=== PATIENT | male | born 1985 | race Caucasian/White ===

== ENCOUNTER 2018-03-13 11:47 | Emergency (ER) | payer OTHER ==
[2018-03-13] MEDS ORDERED: HYDROCODONE/APAP 10/325 TAB ONE (13:13)
[2018-03-13] MEDS ORDERED: DIAZEPAM 5 MG TABLET ONE (13:14)
--- NOTE | 2018-03-13 14:56 | RAD REPORT ---
EXAM DESCRIPTION: CT - C Spine Wo Con - 03/13/2018 2:37 pm CLINICAL HISTORY: Neck pain, decreased range of motion COMPARISON: None. TECHNIQUE: Axial 2 mm thick images of the cervical spine were obtained with sagittal and coronal rec onstruction images generated and reviewed. All CT scans are performed using dose optimization technique as appropriate and may include automated exposure control or mA/KV adjustment according to patient size. FINDINGS: Cervical bodies are normal in height. No subluxation abnormality. There is straightening o f the usual cervical lordosis and a minimal right convex curvature that probably reflect muscle spasm . No facet joint alignment abnormality. No disk space narrowing. No fracture or acute bony abnormalit y. No paraspinal mass or hematoma. Central canal detail is inherently limited on CT imaging. IMPRESSION: No fracture, subluxation abnormality or other acute finding seen. The straightening of the usual cervical lordosis and slight right convex curvature likely reflect mus brina spasm.
--- NOTE | 2018-03-13 15:08 | EDPHYS ---
Physician Documentation [facility] Name: Pola Archuleta Age: 32 yrs Sex: Male : 1985 Arrival Date: 03/13/2018 Time: 11:51 Bed 18 Private MD: Nam Miller ED Physician Riley Contreras HPI: 03/13 13:05 This 32 yrs old Male presents to ER via Ambulatory with complaints of Neck jmm and Upper Back Pain. 13:05 The patient or guardian complains of pain. The symptoms are located on the scalp. jmm Onset: The symptoms/episode began/occurred gradually, 3 day(s) ago. This is a 32 year old male with a history of htn, hlp that presents to the ED with neck pain which developed after he awoke from a nap. Patient denies cough, congestion, fever. Patient states he became concerned due ot the length of symptoms and developed a cold sweat. Patient denies other symptom. . Historical: - Allergies: 12:00 No Known Allergies; hj - Home Meds: 12:00 valsartan 320 mg oral tab 1 tab once daily [Active]; pravastatin 40 mg oral tab 1 tab hj once daily [Active]; - PMHx: 12:00 Hyperlipidemia; Hypertension; hj - PSHx: 12:00 Appendectomy; bone surgery; hj - Immunization history:: Adult Immunizations up to date. - Social history:: Smoking status: Patient uses tobacco products, smokes one pack cigarettes per day. Patient uses alcohol, occasionally. - Ebola Screening: : Patient negative for fever greater than or equal to 101.5 degrees Fahrenheit, and additional compatible Ebola Virus Disease symptoms Patient denies exposure to infectious person Patient denies travel to an Ebola-affected area in the 21 days before illness onset. ROS: 12:10 Constitutional: Negative for fever, chills, and weight loss, Cardiovascular: Negative jmm for chest pain, palpitations, and edema, Respiratory: Negative for shortness of breath, cough, wheezing, and pleuritic chest pain. 12:10 MS/Extremity: Negative for injury and deformity, Skin: Negative for injury, rash, and discoloration. 12:10 Neck: Positive for pain with movement. 12:10 Back: Positive for pain with movement. 12:10 Neuro: Positive for headache. 12:10 All other systems are negative. Exam: 12:10 Head/Face: atraumatic. Chest/axilla: Normal chest wall appearance and motion. terri Cardiovascular: Regular rate and rhythm. No edema appreciated Respiratory: Normal respirations, no respiratory distress appreciated 12:10 Constitutional: The patient appears in no acute distress, alert, awake. 12:10 Neck: C-spine: vertebral tenderness, that is mild, appreciated at C5 and C6, ROM/movement: pain, that is mild, with extension, no pain elicited on flexion. 12:10 Skin: Appearance: Color: normal in color. 12:10 Neuro: Orientation: is normal, Mentation: is normal, Memory: is normal, Cerebellar function: normal finger to nose testing, Gait: is steady. 12:10 Psych: Behavior/mood is pleasant, cooperative. Vital Signs: 12:01 BP 177 / 109; Pulse 78; Resp 18; Temp 98.1(O); Pulse Ox 98% on R/A; Weight 86.18 kg; hj Height 5 ft. 11 in. (180.34 cm); Pain 3/10; 12:55 BP 142 / 82; Pulse 74; Resp 16; Pulse Ox 98% on R/A; Pain 2/10; jb4 13:39 BP 133 / 86; Pulse 76; Resp 16; Pulse Ox 98% on R/A; Pain 2/10; jb4 12:01 Body Mass Index 26.50 (86.18 kg, 180.34 cm) MDM: 13:03 Patient medically screened. [facility] 15:03 Data reviewed: vital signs, nurses notes, radiologic studies, CT scan. Counseling: I terri had a detailed discussion with the patient and/or guardian regarding: the historical points, exam findings, and any diagnostic results supporting the discharge/admit diagnosis, radiology results, the need for outpatient follow up, to return to the emergency department if symptoms worsen or persist or if there are any questions or concerns that arise at home. Response to treatment: the patient's symptoms have mildly improved after treatment. ED course: Patient is alert and non toxic in the ED. Patient is afebrile. Patient does not have meningeal signs in the ED. CT imaging negative. Patient denies hx of previous spinal surgery or IV drug use, I do not currently suspect abscess. Patient's symptoms appear more likely related to musculoskeletal pain. Patient advised to follow up with his PCP. Patient is otherwise given strict return precautions Patient understood and agrees with the plan of care. . 03/13 14:20 Order name: CT C Spine; Complete Time: 15:01 [facility] Administered Medications: 13:10 Drug: [place] 10 mg-325 mg 1 tabs Route: PO; jb4 13:40 Follow up: Response: No adverse reaction jb4 13:10 Drug: Valium 5 mg Route: PO; jb4 13:40 Follow up: Response: No adverse reaction jb4 Disposition: 17:36 Co-signature as Attending Physician, Riley Contreras MD Available for consultation at ps1 all times. . Disposition: 03/13/18 15:07 Discharged to Home. Impression: Sprain of joints and ligaments of unspecified parts of neck. - Condition is Stable. - Discharge Instructions: Cervical Sprain. - Prescriptions for Zanaflex 4 mg Oral Tablet - take 1 tablet by ORAL route every 8 hours As needed; 20 tablet. - Medication Reconciliation Form, Thank You Letter, Antibiotic Education, Prescription Opioid Use form. - Follow up: Nam Miller MD; When: 2 - 3 days; Reason: Recheck today's complaints, Continuance of care, Re-evaluation by your physician. Signatures: Dispatcher [employer] EDMS Nathaniel Joseph PA PA [facility] Jose Casey RN RN la1 Rashi Desai RN RN Ryan Ramirez RN RN jb4 Riley Contreras MD MD ps1 Corrections: (The following items were deleted from the chart) 15:13 15:07 03/13/2018 15:07 Discharged to Home. Impression: Sprain of joints and ligaments la1 of unspecified parts of neck. Condition is Stable. Forms are Medication Reconciliation Form, Thank You Letter, Antibiotic Education, Prescription Opioid Use. Follow up: Nam Miller; When: 2 - 3 days; Reason: Recheck today's complaints, Continuance of care, Re-evaluation by your physician. terri
--- NOTE | 2018-03-13 15:08 | ER ---
Nurse's Notes [facility] Name: Pola Archuleta Age: 32 yrs Sex: Male : 1985 Arrival Date: 03/13/2018 Time: 11:51 Bed 18 Private MD: Nam Miller Diagnosis: Sprain of joints and ligaments of unspecified parts of neck Presentation: 03/13 11:57 Presenting complaint: Patient states: i walk up last Friday from a nap, couldn't get hj my neck move; took Flexeril and it didn't help; i use Flexeril for my previous back injury; denies numbness and tingling; denies trauma to the area; pain 10/11;. Transition of care: patient was not received from another setting of care. Acute neurological deficit: none identified. Onset of symptoms was March 13, 2018. Risk Assessment: Do you want to hurt yourself or someone else? Patient reports no desire to harm self or others. Initial Sepsis Screen: Does the patient meet any 2 criteria? No. Patient's initial sepsis screen is negative. Does the patient have a suspected source of infection? No. Patient's initial sepsis screen is negative. Care prior to arrival: None. 11:57 Method Of Arrival: Ambulatory 11:57 Acuity: CATHERINE 4 hj Triage Assessment: 12:01 General: Appears in no apparent distress. uncomfortable, Behavior is calm, cooperative, hj appropriate for age. Pain: Complains of pain in back of neck. Historical: - Allergies: 12:00 No Known Allergies; hj - Home Meds: 12:00 valsartan 320 mg oral tab 1 tab once daily [Active]; pravastatin 40 mg oral tab 1 tab hj once daily [Active]; - PMHx: 12:00 Hyperlipidemia; Hypertension; hj - PSHx: 12:00 Appendectomy; bone surgery; hj - Immunization history:: Adult Immunizations up to date. - Social history:: Smoking status: Patient uses tobacco products, smokes one pack cigarettes per day. Patient uses alcohol, occasionally. - Ebola Screening: : Patient negative for fever greater than or equal to 101.5 degrees Fahrenheit, and additional compatible Ebola Virus Disease symptoms Patient denies exposure to infectious person Patient denies travel to an Ebola-affected area in the 21 days before illness onset. Screenin:01 Abuse screen: Denies threats or abuse. Denies injuries from another. Nutritional hj screening: No deficits noted. Tuberculosis screening: No symptoms or risk factors identified. Fall Risk None identified. Assessment: 12:02 Neuro: Level of Consciousness is awake, alert, obeys commands, Oriented to person, hj place, time, situation, Appropriate for age. 12:15 General: Appears in no apparent distress. uncomfortable, Behavior is calm, cooperative, jb4 appropriate for age, agitated. Pain: Complains of pain in left trapezius, lower neck Pain radiates to left trapezius Pain currently is 2 out of 10 on a pain scale. at worst was 7 out of 10 on a pain scale. Quality of pain is described as stabbing, throbbing, Pain began 1 day ago. Is continuous. Neuro: Level of Consciousness is awake, alert, obeys commands, Oriented to person, place, time, situation. Cardiovascular: Denies chest pain, shortness of breath, Heart tones S1 S2 present Patient's skin is warm and dry. Respiratory: Airway is patent Respiratory effort is even, unlabored, Respiratory pattern is regular, symmetrical, Breath sounds are clear bilaterally. GI: Abdomen is flat, Bowel sounds present X 4 quads. Abd is soft and non tender X 4 quads. : No signs and/or symptoms were reported regarding the genitourinary system. EENT: No signs and/or symptoms were reported regarding the EENT system. Derm: Skin is intact, Skin is pink, warm \T\ dry. Musculoskeletal: Circulation, motion, and sensation intact. Reports pain in lower neck. 12:20 Reassessment: Pt given a warm pack for neck pain. jb4 12:59 Reassessment: Patient appears in no apparent distress at this time. Patient and/or jb4 family updated on plan of care and expected duration. Pain level reassessed. Patient is alert, oriented x 3, equal unlabored respirations, skin warm/dry/pink. Pt reports feeling more relaxed. Warm pack removed. pain 2/10. Provider at the bedside. 13:39 Reassessment: Patient appears in no apparent distress at this time. Patient and/or jb4 family updated on plan of care and expected duration. Pain level reassessed. Patient is alert, oriented x 3, equal unlabored respirations, skin warm/dry/pink. Pt reports feeling more relaxed after medication administration. Patient states feeling better. 14:53 Reassessment: Patient appears in no apparent distress at this time. Patient and/or la1 family updated on plan of care and expected duration. Pain level reassessed. Patient is alert, oriented x 3, equal unlabored respirations, skin warm/dry/pink. Vital Signs: 12:01 BP 177 / 109; Pulse 78; Resp 18; Temp 98.1(O); Pulse Ox 98% on R/A; Weight 86.18 kg; hj Height 5 ft. 11 in. (180.34 cm); Pain 3/10; 12:55 BP 142 / 82; Pulse 74; Resp 16; Pulse Ox 98% on R/A; Pain 2/10; jb4 13:39 BP 133 / 86; Pulse 76; Resp 16; Pulse Ox 98% on R/A; Pain 2/10; jb4 12:01 Body Mass Index 26.50 (86.18 kg, 180.34 cm) ED Course: 11:51 Patient arrived in ED. sb2 11:51 Nam Miller MD is Private Physician. sb2 11:59 Triage completed. hj 12:01 Arm band placed on right wrist. hj 12:01 Patient has correct armband on for positive identification. Bed in low position. Call light in reach. Side rails up X 1. 12:03 Nathaniel Joseph PA is PHCP. [facility] 12:03 Riley Contreras MD is Attending Physician. jm 12:04 Jose Casey, YOLIS is Primary Nurse. la1 12:15 Pulse ox on. NIBP on. jb4 14:37 CT C Spine In Process Unspecified. EDMS 14:37 CT completed. Patient tolerated procedure well. Patient moved back from CT. vm2 15:06 Nam Miller MD is Referral Physician. jm 15:12 No provider procedures requiring assistance completed. Patient did not have IV access la1 during this emergency room visit. Administered Medications: 13:10 Drug: [place] 10 mg-325 mg 1 tabs Route: PO; jb4 13:40 Follow up: Response: No adverse reaction jb4 13:10 Drug: Valium 5 mg Route: PO; jb4 13:40 Follow up: Response: No adverse reaction jb4 Outcome: 15:07 Discharge ordered by . jm 15:12 Discharged to home ambulatory. la1 15:12 Condition: stable 15:12 Discharge instructions given to patient, Instructed on discharge instructions, follow up and referral plans. no driving heavy equipment, medication usage, Demonstrated understanding of instructions, follow-up care, medications. 15:13 Patient left the ED. la1 Signatures: Dispatcher [employer] EDMS Nathaniel Joseph PA PA jmm Attema, Lee, RN RN la1 Rashi Desai RN RN hj Bryson, James, RN RN jb4 Jessica Cui 2 Betsy Caban 2 Corrections: (The following items were deleted from the chart) 12:32 12:15 GI: Abdomen is flat, Abd is soft and non tender X 4 quads. jb4 jb4 13:00 12:15 Reassessment: Pt given a warm pack for neck pain. jb4 jb4 13:01 12:59 Reassessment: Patient appears in no apparent distress at this time. Patient jb4 and/or family updated on plan of care and expected duration. Pain level reassessed. Patient is alert, oriented x 3, equal unlabored respirations, skin warm/dry/pink. Pt reports feeling more relaxed. Warm pack removed. pain 09/13 jb4
== END 2018-03-13 15:13 | disposition home or self-care (01) ==
LOC: ER 11:47
DX: S13.9XXA Sprain of joints and ligaments of unspecified parts of neck, initial encounter (principal); I10 Essential (primary) hypertension; E78.5 Hyperlipidemia, unspecified; F17.210 Nicotine dependence, cigarettes, uncomplicated
CPT/HCPCS: 72125; 99284